=== PATIENT | female | born 1965 | race Caucasian/White ===

== ENCOUNTER 2017-04-26 10:02 | Emergency (ER) | payer BC ==
[~2017-04-26] VITALS: Ht 152.4 cm; Wt 71.2 kg
[2017-04-26 10:08] VITALS: BP_SYST 123
[2017-04-26 10:55] VITALS: BP_SYST 123
== END 2017-04-26 10:55 | disposition home or self-care (01) ==
LOC: SED 10:02
DX: J32.1 Chronic frontal sinusitis (principal); E78.00 Pure hypercholesterolemia, unspecified; Z88.1 Allergy status to other antibiotic agents
CPT/HCPCS: 99283

== ENCOUNTER 2017-08-06 11:39 | Inpatient (IN) | payer BC ==
[~2017-08-06] VITALS: Ht 154.9 cm; Wt 72.6 kg
[2017-08-06 11:39] VITALS: BP_SYST 152
[2017-08-06] MEDS ORDERED: NACL 0.9% 1,000 ML IV ONE (12:00)
[2017-08-06] MEDS ORDERED: PROMETHAZINE HCL 25 MG/ML AMP IVP ONE (12:00)
[2017-08-06 12:41] LABS: BASOPHILS % (AUTO) 0.5 % (0.0-2.0); EOSINOPHILS # (AUTO) 0.1 K/uL (0.0-0.4); EOSINOPHILS % (AUTO) 0.8 % (0.0-4.0); HEMATOCRIT 45.7 % (36-48); HEMOGLOBIN 14.8 g/dL (12.0-16.0); LYMPHOCYTES # (AUTO) 1.7 K/uL (1.0-5.5); LYMPHOCYTES % (AUTO) 21.9 % (20.5-51.5); MEAN CORPUSCULAR HEMOGLOBIN 28 pg (27-31); MEAN CORPUSCULAR HGB CONC 33 % (32-36); MEAN CORPUSCULAR VOLUME 86 fL (79.0-98.0); MONOCYTES # (AUTO) 0.3 K/uL (0.0-1.0); MONOCYTES % (AUTO) 4.1 % (1.7-9.3); NEUTROPHILS # (AUTO) 5.9 K/uL (1.8-7.7); NEUTROPHILS % (AUTO) 72.7 % (40.0-70.0); PLATELET COUNT (AUTO) 381 K/uL (130-430); RED CELL DISTRIBUTION WIDTH 11.5 % (9.0-15.0)
[2017-08-06 12:56] LABS: CREATININE 0.7 mg/dL (0.55-1.30); POTASSIUM 3.4 mmol/L (3.5-5.1)
[2017-08-06 12:59] LABS: PROTHROMBIN TIME 10.5 SECS (9.5-12.5)
[2017-08-06 13:10] LABS: ALBUMIN 4.2 g/dL (3.4-4.8); TOTAL BILIRUBIN 0.5 mg/dL (0.0-1.0)
[2017-08-06 13:23] LABS: COLOR,URINE YELLOW (YELLOW)
[2017-08-06 13:24] LABS: BILIRUBIN,URINE NEGATIVE (NEGATIVE); BLOOD, URINE NEGATIVE (NEGATIVE); CLARITY/URINE CLEAR (CLEAR); GLUCOSE,URINE NEGATIVE (NEGATIVE); KETONES,URINE 1+ (NEGATIVE); LEUKOCYTE ESTERASE ,URINE TRACE (NEGATIVE); NITRITE, URINE NEGATIVE (NEGATIVE); PROTEIN URINE NEGATIVE (NEGATIVE); UROBILINOGEN,URINE 0.2 (0.2-1.0)
[2017-08-06 13:36] LABS: BACTERIA,URINE FEW /HPF (None Seen); MUCUS,URINE None Seen /LPF (None Seen); RBC,URINE NONE SEEN /HPF (0-3)
[2017-08-06] MEDS ORDERED: MECLIZINE HCL 25 MG TABLET (ANITVERT) PO ONE (15:45)
[2017-08-06] MEDS ORDERED: PARO12.520 PO (16:18)
[2017-08-06] MEDS ORDERED: CYCL-10 PO (16:18)
[2017-08-06] MEDS ORDERED: LEVO50TA77 PO (16:18)
[2017-08-06] MEDS ORDERED: PRAV40TA PO (16:18)
[2017-08-06] MEDS ORDERED: ONDANSETRON HCL 4 MG/2 ML VIAL IVP ONE (16:30)
[2017-08-06 16:48] VITALS: BP_SYST 108
[2017-08-06 20:12] VITALS: BP_SYST 133
[2017-08-06] MEDS: SIMVASTATIN 20 MG TABLET PO SCH (21:24)
[2017-08-06] MEDS: MECLIZINE HCL 25 MG TABLET (ANITVERT) PO SCH (21:24)
[2017-08-07 00:15] VITALS: BP_SYST 103
[2017-08-07] MEDS: LEVOTHYROXINE SODIUM 0.05 MG TABLET PO SCH (06:43)
[2017-08-07 08:08] VITALS: BP_SYST 112
[2017-08-07] MEDS ORDERED: PRAVASTATIN SODIUM 20 MG TABLET (PRAVACHOL) PO SCH (09:00)
[2017-08-07] MEDS: MECLIZINE HCL 25 MG TABLET (ANITVERT) PO SCH ×3 (09:30→20:56)
[2017-08-07] MEDS ORDERED: LORazepam 1 MG TABLET PO PRN (09:45)
[2017-08-07] MEDS ORDERED: LORazepam 2 MG/ML VIAL IVP PRN (10:15)
[2017-08-07 12:20] VITALS: BP_SYST 118; BP_SYST 119; BP_SYST 133
[2017-08-07] MEDS ORDERED: PARoxetine HCL 20 MG TABLET PO ONE (13:15)
[2017-08-07 16:01] VITALS: BP_SYST 105
[2017-08-07 20:00] VITALS: BP_SYST 115
[2017-08-07] MEDS: SIMVASTATIN 20 MG TABLET PO SCH (20:56)
[2017-08-08 00:25] VITALS: BP_SYST 113
[2017-08-08] MEDS: LEVOTHYROXINE SODIUM 0.05 MG TABLET PO SCH (06:05)
[2017-08-08 08:08] VITALS: BP_SYST 108
[2017-08-08] MEDS ORDERED: PAROXETINE 12.5 MG PO SCH (09:00)
[2017-08-08] MEDS ORDERED: PARoxetine HCL 20 MG TABLET PO SCH (09:00)
[2017-08-08] MEDS: MECLIZINE HCL 25 MG TABLET (ANITVERT) PO SCH (09:17)
[2017-08-08] MEDS ORDERED: MECL-110 PO (11:18)
[2017-08-08 11:22] VITALS: BP_SYST 107
== END 2017-08-08 11:56 | disposition home or self-care (01) | DRG 149 ==
LOC: SED 11:39 → STU 16:16 → SMU 08-08 09:32
PROVIDERS: ADMIT Internal Medicine Hospice and Palliative Medicine; ATTEND Internal Medicine Hospice and Palliative Medicine
DX: R42 Dizziness and giddiness (principal); I31.3 Pericardial effusion (noninflammatory); E03.9 Hypothyroidism, unspecified; E78.00 Pure hypercholesterolemia, unspecified; F41.9 Anxiety disorder, unspecified; Z88.1 Allergy status to other antibiotic agents; Z79.899 Other long term (current) drug therapy
CPT/HCPCS: 36415; 70450-TC; 71045; 80053; 81000-TC; 83880; 84484; 85025; 85610-TC; 85730-TC; 93005; 93306; 93880; 96374; 99285; J2405; J2550; J7030; J8597